=== PATIENT | male | born 1950 | race African-American/Black ===

== ENCOUNTER 2018-01-11 05:50 | Day surgery (SDC) | payer OTHER ==
[~2018-01-11] VITALS: Ht 188 cm; Wt 102.5 kg
[2018-01-11] MEDS ORDERED: EYE ITCH RELIEF5 ML OPTH (05:55)
[2018-01-11] MEDS ORDERED: LATANOPROST2.5 ML OPTH (05:56)
[2018-01-11] MEDS ORDERED: ALPHAGAN P5 M1 OPTH (05:56)
[2018-01-11] MEDS ORDERED: BETIMOL5 M1 OPTH (05:56)
[2018-01-11] MEDS ORDERED: TRUSOPT10 ML OPTH (05:56)
[2018-01-11] MEDS ORDERED: ADVIL200 MG PO (06:03)
--- NOTE | 2018-01-11 09:04 | NUR ---
01/11/18 0904 Rachel Piper 0850 PATIENT ARRIVES TO PACU ASLEEP, DOES NOT RESPOND TO VERBAL OR PAINFUL STIMULI. RESP EVEN AND UNLABORED, MASK AT 8 LITERS, DECREASED TO 6 LITERS, SATS 100%. [facility] GUARD AT BEDSIDE.
--- NOTE | 2018-01-11 09:37 | NUR ---
ICED WATER GIVEN. TRANSPORT OFFICERS @ BS.
--- NOTE | 2018-01-11 10:46 | NUR ---
DC INSTRUCTIONS GIVEN AND PATIENT VERBALIZES UNDERSTANDING. PT DRESSES SELF IN PRESENCE OF OFFICERS. ATTEMPT MADE TO CALL REPORT TO [facility] - THERE IS NO ANSWER.
--- NOTE | 2018-01-12 09:55 | OR ---
[facility] [address], [place] [address] Signed DATE OF OPERATION: 01/11/2018 SURGEON: Zachariah Franklin MD PREOPERATIVE DIAGNOSIS: Rotator cuff tear full thickness, left shoulder. POSTOPERATIVE DIAGNOSIS: Rotator cuff tear full thickness, left shoulder. PROCEDURE PERFORMED: Left shoulder arthroscopy with rotator cuff repair and subacromial decompression. ANESTHESIA: General. SPECIMENS AND COMPLICATIONS: There were no specimens or complications. TOURNIQUET: Not used. BLOOD LOSS: Minimal. WHAT WAS DONE: The patient was taken to the operating room. After anesthesia was induced and airway secured, the patient was positioned, prepped and draped in a routine sterile fashion in a modified beach chair position. The bony topography was then outlined on the skin with a skin marking pen and the arthroscope was inserted through the standard posterior portal. Arthroscopy of the shoulder joint itself revealed a moderate hypertrophic synovitis. The long head of the biceps was not identifiable. However, the glenoid and the humeral head were relatively unscathed. There is a full-thickness tear of the supraspinatus. The infraspinatus and the subscapularis appeared unremarkable. An anterior portal was created using a switching stick technique and a limited synovectomy was performed. We then transitioned the scope into the subacromial space, where there was a rather dense bursitis and fairly marked fraying on the bursal-sided aspect of the rotator cuff tear. An auxiliary lateral portal was created and we used the VAPR electrosurgical device to do a subacromial bursectomy and to debride the rather frayed edges of the supraspinatus. We then used the VAPR to remove the soft tissue off the Electronically Signed By: ZACHARIAH FRANKLIN MD 01/12/18 0955 PATIENT NAME: MARCEL HYLTON OPERATIVE REPORT DATE OF : 48 REPORT #: [id number] PHYSICIAN: ZACHARIAH FRANKLIN MD PCP: ELSIE SANFORD MD REPORT IS CONFIDENTIAL AND NOT TO BE RELEASED WITHOUT AUTHORIZATION [facility] [address], [place] [address] Signed apex of the greater tuberosity. Because it was extremely tight due to a rather large hooked acromion, we then introduced the 4-mm andrew through the rather generous subacromial decompression. This improved visualization greatly. We then used the andrew to decorticate the apex and a portion of the lateral wall of the greater tuberosity. We then placed a 5.5 BioComposite anchor at the mid portion of the tear and secured it. We then used the Scorpion device to place two horizontal mattress sutures through the rotator cuff. By tying these down, we actually got a very nice repair of the cuff. We then effected a double-row repair using a SwiveLock to grab all the loose ends of the previously tied sutures and placing them through the SwiveLock and then tensioning the repair again. The excess sutures were then cut off. This appeared to give us an excellent repair down the [place] bone. The subacromial space was then irrigated and drained. The portals were closed and sterile dressings were applied. He was placed in an UltraSling, awakened to the recovery room, where he arrived in stable condition. Counts were correct and the antibiotic protocols were followed. Zachariah rFanklin MD WFB/MODL /[id number] Copies: ~ Electronically Signed By: ZACHARIAH FRANKLIN MD 01/12/18 0955 PATIENT NAME: MARCEL HYLTON OPERATIVE REPORT DATE OF : 48 REPORT #: [id number] PHYSICIAN: ZACHARIAH FRANKLIN MD PCP: ELSIE SANFORD MD REPORT IS CONFIDENTIAL AND NOT TO BE RELEASED WITHOUT AUTHORIZATION
== END 2018-01-11 10:45 | disposition home or self-care (01) ==
LOC: OPS 05:50 → DS 05:50 → OPS 06:45
PROVIDERS: Orthopaedic Surgery
PROC: 0RNK4ZZ Release Left Shoulder Joint, Percutaneous Endoscopic Approach (ICD-10-PCS; 2018-01-11)
PROC: 0LQ24ZZ Repair Left Shoulder Tendon, Percutaneous Endoscopic Approach (ICD-10-PCS; principal; 2018-01-11 06:45)
DX: M75.122 Complete rotator cuff tear or rupture of left shoulder, not specified as traumatic (principal); Z79.899 Other long term (current) drug therapy
CPT/HCPCS: 01630; 64415; 76942; C1713; J0330; J0690; J1100; J1885; J2250; J2370; J2405; J2704; J2795; J3010

== ENCOUNTER 2018-08-04 06:00 | Day surgery (SDC) | payer OTHER ==
[~2018-08-04] VITALS: Ht 188 cm; Wt 99.8 kg
[~2018-08-04 06:00] MED LIST: ADVIL200 MG PO; ALPHAGAN P5 M1 OPTH; BETIMOL5 M1 OPTH; EYE ITCH RELIEF5 ML OPTH; LATANOPROST2.5 ML OPTH; TRUSOPT10 ML OPTH
[2018-08-04] MEDS ORDERED: ALLERGY RELIEF10 M1 PO (06:07)
--- NOTE | 2018-08-04 09:31 | NUR ---
08/04/18 0931 Piedad Bedolla 0905- PT ARRIVES TO PACU FROM OR ON 6 L VIA MASK OXYGEN SATS 100%. PT REACTIVE AND RESPONSIVE TO VERBAL STIMULUS. CMS INTACT. SKIN WARM AND DRY. DRESSING C/D/I. PT REPORTS PAIN IN SHOULDER. 0908- PT TITRATED TO RA WITH SATS 100%. PT REPORTS PAIN 8/10 IN LEFT SHOULDER. PT COUGHS AND DEEP BREATHS. RESPONSIVE TO VERBAL STIMULUS. FOLLOW COMMANDS APPROPRIATELY. 0925- PT REPORTS CONTINUED 8/10 PAIN. PT MEDICATED FRO PAIN SEE EMAR. PT COUGHS AND DEEPS BREATHS. O2 SATS >90% ON RA. 0930- VSS. PT REPORTS PAIN LEVEL DECREASED. PT DENIES NAUSEA. COUGH AND DEEP BREATH ENCOURAGED.
--- NOTE | 2018-08-04 10:15 | NUR ---
0955 PT RETURNS FROM PACU, AWAKE TALKING WITH STAFF. VITALS STABLE.PT RATES PAIN 6/10, DULL CRAMPING. MEDICATION GIVEN. CRACKER, JELLO AND WATER GIVEN. PT READJUSTED IN BED FOR COMFORT. NO FURTHER NEEDS AT THIS TIME. GUARDS AT BEDS.
--- NOTE | 2018-08-04 10:56 | NUR ---
IN TO PT ROOM. PT STATES PAIN REMAINS THE SAME 01/09. ORAL MEDICATION GIVEN. PT ASSISTED TO STANDING AT THE SIDE OF BED. DIZZINESS NOTED WHEN STANDING, PT STATES RESOLVES QUICKLY. PT ASSISTED BACK TO BED. TOLERATING PO WELL. BP REMAINS ELEVATED. BASELINE BP ELEVATED ON ADMIT. DISCUSSED DISCHARGE CRITERIA WITH PT AND GUARDS. WILL CHECK ON PT SOON.
--- NOTE | 2018-08-08 08:32 | OR ---
[facility] [address], [place] [address] Signed DATE OF OPERATION: 08/04/2018 SURGEON: Zachariah Rader MD PREOPERATIVE DIAGNOSES: Recurrent full-thickness rotator cuff tear, left shoulder and rupture of the long head of the biceps. POSTOPERATIVE DIAGNOSES: Recurrent full-thickness rotator cuff tear, left shoulder and rupture of the long head of the biceps. PROCEDURE PERFORMED: Open rotator cuff repair with revision of subacromial arthroplasty. ANESTHESIA: General. SPECIMENS AND COMPLICATIONS: There were no specimens or complications. BLOOD LOSS: Minimal. WHAT WAS DONE: The patient was taken to the operating room. After anesthesia was induced and the airway secured, the patient was placed in a modified beach chair position, and prepped and draped in routine sterile fashion. A curvilinear anterior incision was made beginning at the AC joint and extending distally for about 9 cm. Skin was divided sharply. Subcutaneous tissue was bluntly spread. We then elevated about 4 cm of the deltoid of the AC joint in the anterior aspect of the acromion and then split the deltoid down the anterior raphe. Self-retaining retractor was placed. We then used an oscillating saw to remove the anterior beak of the acromion and into a fairly generous Neer acromioplasty. We then treated the undersurface with the bone wax. The supraspinatus was completely torn and retracted all the way to the glenoid. There was really no tissue of any quality that would be amenable to repair. We therefore gently mobilized the infraspinatus and the subscap and we were able to do a [id number]-eg-[id number] repair beginning at the level of the glenohumeral articulation and continuing laterally to the articular surface. Also noticed there was just a nub of remaining a biceps tendon on the glenoid. The distal biceps tendon was not identifiable. After doing the Electronically Signed By: ZACHARIAH RADER MD 08/08/18 0832 PATIENT NAME: MARCEL HYLTON OPERATIVE REPORT DATE OF : 48 REPORT #: [id number] PHYSICIAN: ZACHARIAH RADER MD PCP: KARINA XIE MD REPORT IS CONFIDENTIAL AND NOT TO BE RELEASED WITHOUT AUTHORIZATION [facility] [address], [place] [address] Signed [id number] repair, we then placed two 6.5 BioComposite corkscrew anchors. We then did a double repair laterally again further opposing and advancing the edges to bone that had been scarified with a rongeur. At this point, we appeared to have a secure and a watertight repair of the rotator cuff with an excellent decompression. The shoulder was copiously irrigated and drained. We then reattached the deltoid to the acromion through drill holes using multiple sutures of Ethibond suture. We then closed the split in the raphe. The wound was again irrigated. Routine wound closure accomplished and a sterile dressing applied. The patient was awakened and taken to the recovery room where he arrived in stable condition. Counts were correct and antibiotic protocols were followed. MD PAULINO ValdezB/MODL /[id number] Copies: ~ Electronically Signed By: ZACHARIAH RADER MD 08/08/18 0832 PATIENT NAME: MARCEL HYLTON OPERATIVE REPORT DATE OF : 48 REPORT #: [id number] PHYSICIAN: ZACHARIAH RADER MD PCP: KARINA XIE MD REPORT IS CONFIDENTIAL AND NOT TO BE RELEASED WITHOUT AUTHORIZATION
== END 2018-08-04 11:15 | disposition home or self-care (01) ==
LOC: DS 06:00 → OPS 06:00 → DS 06:45 → OPS 06:45
PROVIDERS: Orthopaedic Surgery
PROC: 0RQH0ZZ Repair Left Acromioclavicular Joint, Open Approach (ICD-10-PCS; 2018-08-04)
PROC: 0LQ20ZZ Repair Left Shoulder Tendon, Open Approach (ICD-10-PCS; principal; 2018-08-04 06:45)
DX: M75.122 Complete rotator cuff tear or rupture of left shoulder, not specified as traumatic (principal); S46.112A Strain of muscle, fascia and tendon of long head of biceps, left arm, initial encounter
CPT/HCPCS: 01630; 64415; 76942; C1713; J0330; J0690; J1100; J1885; J2250; J2270; J2310; J2405; J2704; J2795; J3010; J7120